=== PATIENT | female | born 1945 | race Asian ===

== ENCOUNTER 2016-07-21 03:45 | Emergency (ER) | payer OTHER ==
--- NOTE | 2016-07-21 03:58 | PDOC ---
History of Present Illness - General History Source: Patient, Family Exam Limitations: No Limitations - History of Present Illness Initial Comments: 07/21/16 04:24 The patient is a 71 year old female with significant past medical history of hypertension, hyperlipidemia, and GERD who presents to the ED with epigastric discomfort. As per granddaughter, at bedside, patient had sylvia pasta for dinner last night. Subsequently, she developed epigastric discomfort with excessive belching. She denies nausea, vomiting, and diarrhea. She states taking her pantoprazole with minimal improvement. The patient denies fever, chills, cough, SOB, chest pain, and palpitations. Allergies: NKDA Social History: No alcohol, tobacco, or drug use reported. Past Surgical History: left knee replacement 2006 PCP: Dr. Cade Escoto <Jocy Smith - Last Filed: 07/21/16 04:24> <Julia Conway - Last Filed: 07/21/16 06:36> - General Stated Complaint: ABD PAIN Time Seen by Provider: 07/21/16 03:58 Past History <Jocy Smith - Last Filed: 07/21/16 04:24> - Past Medical History GI Disorders: Yes (GERD) HTN: Yes Hypercholesterolemia: Yes - Surgical History Orthopedic Surgery: Yes (left knee replacement 2006) - Immunization History Immunization Up to Date: Yes - Psycho/Social/Smoking Cessation Hx Anxiety: No Suicidal Ideation: No Smoking History: Never smoked Number of Cigarettes Smoked Daily: 0 Cigars Per Day: 0 Hx Alcohol Use: No Substance Use Type: None <Julia Conway - Last Filed: 07/21/16 06:36> - Past Medical History Allergies/Adverse Reactions: Allergies Allergy/AdvReac Type Severity Reaction Status Date / Time lactose AdvReac Verified 07/21/16 03:59 Home Medications: Ambulatory Orders Acetaminophen [Tylenol .Extra-Strength -] 500 mg PO Q6H PRN 07/11/13 Atorvastatin Ca [Lipitor -] 20 mg PO HS 07/11/13 Esomeprazole Mag Trihydrate [Nexium] 40 mg PO DAILY 07/11/13 Loratadine [Claritin -] 10 mg PO DAILY 07/11/13 Olopatadine HCl [Patanol] 5 ml OP BID 07/11/13 Metoprolol Tartrate [Lopressor -] 25 mg PO BID #0 tab 07/12/13 Pantoprazole Sodium [Protonix] 40 mg PO DAILY #30 tablet. 12/26/15 Famotidine [Pepcid] 20 mg PO DAILY #14 tablet 01/12/16 Mag Hydrox/Al Hydrox/Simeth [Mylanta Suspension -] 30 ml PO Q6H #1 bottle Acetaminophen [Tylenol -] 500 mg PO QID PRN 03/15/16 Cetirizine HCl [Zyrtec -] 10 mg PO DAILY 03/15/16 Ondansetron [Zofran Odt -] 4 mg SL TID PRN #21 od.tablet 03/16/16 Sucralfate [Carafate -] 1 gm PO BID #30 tablet 07/21/16 Review of Systems - Review of Systems Able to Perform ROS?: Yes Comments:: 07/21/16 04:24 CONSTITUTIONAL: Absent: fever, no chills, no fatigue EYES: Absent: visual changes ENT: Absent: ear pain, no sore throat CARDIOVASCULAR: Absent: chest pain, no palpitations RESPIRATORY: Absent: cough, no SOB GI: +epigastric discomfort Absent: no nausea, no vomiting, no constipation, no diarrhea GENITOURINARY: Absent: dysuria, no frequency, no hematuria MUSKULOSKELETAL: Absent: back pain, no arthralgia, no myalgia SKIN: Absent: rash NEURO: Absent: headache <BharrJocy thompson - Last Filed: 07/21/16 04:24> *Physical Exam - Vital Signs Last Vital Signs Temp Pulse Resp BP Pulse Ox 97.6 F 81 18 131/71 100 07/21/16 04:00 07/21/16 04:00 07/21/16 04:00 07/21/16 04:00 07/21/16 04:00 - Physical Exam Comments: 07/21/16 04:25 GENERAL: Well-appearing, well-nourished. No apparent distress. HEENT: Normocephalic, atraumatic. PERRL, EOM intact. CARDIOVASCULAR: Normal S1, S2. Regular rate and rhythm. PULMONARY: Clear to auscultation bilaterally. ABDOMEN: Soft, non-distended, non-tender. EXTREMITIES: Normal ROM in all four extremities. No gross deformities. SKIN: Warm, dry. No rash NEUROLOGICAL: No focal neurological deficits. <Jocy Smith - Last Filed: 07/21/16 04:24> Medical Decision Making - Medical Decision Making 07/21/16 06:34 Pt has reflux and gastritis and she ate tomato sauce today. Also she has lactose intolerance and she ate sylvia sauce. Now with gas and pain in the epigastric area. I treated her with maalox and carafate and she is feeling better. Home with carafate. Pt was warned not to eat foods that disagree with her. Pt is doing well. NO SOB and no lower abdominal tenderness and no flank pain and no fever. She appears well. <Julia Conway - Last Filed: 07/21/16 06:36> *DC/Admit/Observation/Transfer - Attestations Scribe Attestion: 07/21/16 04:25 Documentation prepared by Jocy Smith, acting as medical office administrator for Julia Conway MD <Jocy Smith - Last Filed: 07/21/16 04:24> - Discharge Dispostion Admit: Yes <Julia Conway - Last Filed: 07/21/16 06:36> Diagnosis at time of Disposition: Gastritis, GERD (gastroesophageal reflux disease) - Discharge Dispostion Disposition: HOME Condition at time of disposition: Improved - Prescriptions Prescriptions: Sucralfate [Carafate -] 1 gm PO BID #30 tablet - Referrals Referrals: Cade Escoto [Primary Care Provider] - - Patient Instructions Printed Discharge Instructions: Gastritis (Alternative Therapy), [place] Diet
[2016-07-21 04:09] VITALS: BP 131/71; PULSE 81; TEMP 97.6; BMI 27.4
[2016-07-21] MEDS ORDERED: SUCRALFATE 1 GM/10 ML UNIT DOSE CUPS PO ONE (04:09)
[2016-07-21] MEDS ORDERED: MAG HYDROX/AL HYDROX/SIMETH 30 ML UNIT-DOSE CUP PO ONE (04:10)
[2016-07-21] MEDS ORDERED: MAG HYDROX/AL HYDROX/SIMETH 30 ML UNIT-DOSE CUP ONE (04:22)
[2016-07-21] MEDS ORDERED: OXYCODONE/APAP 5/325MG COMBO TABLET PO ONE (04:29)
[2016-07-21] MEDS ORDERED: OXYCODONE/APAP 5/325MG COMBO TABLET ONE (04:43)
== END 2016-07-21 04:44 | disposition home or self-care (01) ==
LOC: JER 03:45
DX: K29.70 Gastritis, unspecified, without bleeding (principal); K21.9 Gastro-esophageal reflux disease without esophagitis; I10 Essential (primary) hypertension; E78.5 Hyperlipidemia, unspecified; Z96.652 Presence of left artificial knee joint
CPT/HCPCS: 99282-25

== ENCOUNTER 2017-03-08 12:24 | Emergency (ER) | payer OTHER ==
[2017-03-08 12:51] VITALS: BP 131/75; PULSE 81; TEMP 98.2; BMI 28.3
== END 2017-03-08 15:03 | disposition left against medical advice (07) ==
LOC: JER 12:24
DX: Z53.21 Procedure and treatment not carried out due to patient leaving prior to being seen by health care provider (principal)
CPT/HCPCS: 99281-25